=== PATIENT | female | born 1985 | race American Indian/Alaskan Native ===

== ENCOUNTER 2021-10-31 12:51 | Inpatient (IN) | payer OTHER ==
[2021-10-31] MEDS ORDERED: amLODIPine 5 MG TAB PO ONE (13:20)
--- NOTE | 2021-10-31 13:21 | Emergency Department Report ---
ED General Adult HPI - General Chief complaint: High BP Stated complaint: BLOOD PRESSURE HIGH PUI?: No Source: patient, RN notes reviewed Mode of arrival: Ambulatory Limitations: No Limitations - History of Present Illness Initial comments: This patient is a pleasant 36-year-old female. She reports that she is not , and reports that she has not delivered her given in the past 6 weeks. Her primary care doctor is with [facility]. She has not seen a primary care doctor or had a routine checkup in a few years. She presents to the ER today with a complaint of painless hematuria, and painless hypertension and elevated blood pressure. The patient reports that she went to an outpatient urgent care center to be evaluated for hematuria which is painless, and was found to have high blood pressure, and thus referred to the emergency room. Patient denies recreational drug use. She denies physical pain. She denies dysuria. She denies painful muscular compartments. She denies significant family history that she is aware of. -: unknown Improves with: none Worsens with: none Associated Symptoms: denies other symptoms - Related Data Allergies Allergy/AdvReac Type Severity Reaction Status Date / Time No Known Allergies Allergy Verified 10/31/21 12:59 ED Review of Systems ROS: Stated complaint: BLOOD PRESSURE HIGH Other details as noted in HPI Comment: All other systems reviewed and negative Genitourinary: hematuria ED Physical Exam - General Limitations: No Limitations General appearance: alert, anxious, obese - Head Head exam: Present: atraumatic, normocephalic - Eye Eye exam: Present: normal appearance, EOMI. Absent: nystagmus - ENT ENT exam: Present: normal exam, normal orophraynx, mucous membranes moist, normal external ear exam - Neck Neck exam: Present: normal inspection, full ROM. Absent: tenderness, meningismus - Respiratory Respiratory exam: Present: normal lung sounds bilaterally. Absent: respiratory distress, wheezes, rales, rhonchi, stridor, decreased breath sounds - Cardiovascular Cardiovascular Exam: Present: regular rate, normal rhythm, normal heart sounds. Absent: bradycardia, tachycardia, irregular rhythm, systolic murmur, diastolic murmur, rubs, gallop - GI/Abdominal GI/Abdominal exam: Present: soft. Absent: distended, tenderness, guarding, rebound, rigid, pulsatile mass - Extremities Exam Extremities exam: Present: normal inspection, full ROM, other (2+ pulses noted in the bilateral upper and lower extremities. There is no palpable cord. negative Homans sign. Muscular compartments are soft. The pelvis is stable.). Absent: pedal edema, calf tenderness - Back Exam Back exam: Present: normal inspection, full ROM. Absent: tenderness, CVA tenderness (R), CVA tenderness (L), paraspinal tenderness, vertebral tenderness - Neurological Exam Neurological exam: Present: alert, oriented X3, normal gait, other (No facial droop. Tongue midline. Extraocular movements intact bilaterally. Facial sensation intact to light touch in V1, V2, V3 distribution bilaterally. 5 and a 5 strength in 4 extremities. Sensation intact to light touch in 4 extremities .). Absent: motor sensory deficit - Psychiatric Psychiatric exam: Present: normal affect, normal mood - Skin Skin exam: Present: warm, dry, intact, normal color. Absent: rash ED Course Vital Signs 10/31/21 10/31/21 10/31/21 13:01 13:28 13:30 Temperature 98 F Pulse Rate 100 H 101 H Respiratory 16 15 Rate Blood Pressure Blood Pressure 244/148 [Left] O2 Sat by Pulse 100 100 100 Oximetry 10/31/21 10/31/21 10/31/21 13:32 13:46 14:00 Temperature 98.2 F Pulse Rate 97 H 85 Respiratory 18 24 13 Rate Blood Pressure 229/149 224/155 Blood Pressure 226/146 [Left] O2 Sat by Pulse 100 99 100 Oximetry 10/31/21 10/31/21 10/31/21 14:16 15:02 15:10 Temperature Pulse Rate 91 H 81 75 Respiratory 24 16 20 Rate Blood Pressure 226/139 224/152 240/132 Blood Pressure [Left] O2 Sat by Pulse 99 100 100 Oximetry 10/31/21 10/31/21 10/31/21 15:18 15:25 15:30 Temperature Pulse Rate 79 87 Respiratory 17 16 Rate Blood Pressure 229/151 224/144 Blood Pressure 226/144 [Left] O2 Sat by Pulse 100 99 Oximetry 10/31/21 10/31/21 10/31/21 15:46 16:00 16:08 Temperature Pulse Rate 86 77 93 H Respiratory 25 H 21 25 H Rate Blood Pressure 215/137 221/145 240/132 Blood Pressure [Left] O2 Sat by Pulse 100 99 99 Oximetry 10/31/21 10/31/21 10/31/21 16:15 16:19 16:33 Temperature Pulse Rate 95 H 100 H 100 H Respiratory 17 17 21 Rate Blood Pressure 204/130 230/141 186/116 Blood Pressure [Left] O2 Sat by Pulse 97 100 98 Oximetry 10/31/21 10/31/21 10/31/21 16:45 16:47 16:49 Temperature Pulse Rate 110 H 103 H 105 H Respiratory 23 23 23 Rate Blood Pressure 175/109 175/109 175/109 Blood Pressure [Left] O2 Sat by Pulse 100 99 99 Oximetry 10/31/21 10/31/21 10/31/21 16:51 16:53 16:55 Temperature Pulse Rate 104 H 104 H 103 H Respiratory 20 19 19 Rate Blood Pressure 175/109 175/109 175/105 Blood Pressure [Left] O2 Sat by Pulse 99 99 100 Oximetry 10/31/21 10/31/21 10/31/21 16:57 16:59 17:01 Temperature Pulse Rate 96 H 99 H 96 H Respiratory 19 17 17 Rate Blood Pressure 175/105 175/105 175/105 Blood Pressure [Left] O2 Sat by Pulse 98 99 99 Oximetry 10/31/21 10/31/21 10/31/21 17:02 17:03 17:05 Temperature Pulse Rate 97 H 94 H 93 H Respiratory 21 24 16 Rate Blood Pressure 171/103 171/103 171/103 Blood Pressure [Left] O2 Sat by Pulse 98 99 99 Oximetry 10/31/21 10/31/21 10/31/21 17:07 17:09 17:10 Temperature Pulse Rate 99 H 97 H 100 H Respiratory 19 15 20 Rate Blood Pressure 171/103 168/111 168/111 Blood Pressure [Left] O2 Sat by Pulse 99 99 99 Oximetry ED Medical Decision Making - Lab Data Result diagrams: 10/31/21 13:36 10/31/21 13:36 Vital Signs 10/31/21 10/31/21 10/31/21 13:01 13:28 13:30 Temperature 98 F Pulse Rate 100 H 101 H Respiratory 16 15 Rate Blood Pressure Blood Pressure 244/148 [Left] O2 Sat by Pulse 100 100 100 Oximetry 10/31/21 10/31/21 10/31/21 13:32 13:46 14:00 Temperature 98.2 F Pulse Rate 97 H 85 Respiratory 18 24 13 Rate Blood Pressure 229/149 224/155 Blood Pressure 226/146 [Left] O2 Sat by Pulse 100 99 100 Oximetry 10/31/21 10/31/21 10/31/21 14:16 15:02 15:10 Temperature Pulse Rate 91 H 81 75 Respiratory 24 16 20 Rate Blood Pressure 226/139 224/152 240/132 Blood Pressure [Left] O2 Sat by Pulse 99 100 100 Oximetry 10/31/21 10/31/21 10/31/21 15:18 15:25 15:30 Temperature Pulse Rate 79 87 Respiratory 17 16 Rate Blood Pressure 229/151 224/144 Blood Pressure 226/144 [Left] O2 Sat by Pulse 100 99 Oximetry 10/31/21 10/31/21 10/31/21 15:46 16:00 16:08 Temperature Pulse Rate 86 77 93 H Respiratory 25 H 21 25 H Rate Blood Pressure 215/137 221/145 240/132 Blood Pressure [Left] O2 Sat by Pulse 100 99 99 Oximetry 10/31/21 10/31/21 10/31/21 16:15 16:19 16:33 Temperature Pulse Rate 95 H 100 H 100 H Respiratory 17 17 21 Rate Blood Pressure 204/130 230/141 186/116 Blood Pressure [Left] O2 Sat by Pulse 97 100 98 Oximetry 10/31/21 10/31/21 10/31/21 16:45 16:47 16:49 Temperature Pulse Rate 110 H 103 H 105 H Respiratory 23 23 23 Rate Blood Pressure 175/109 175/109 175/109 Blood Pressure [Left] O2 Sat by Pulse 100 99 99 Oximetry 10/31/21 10/31/21 10/31/21 16:51 16:53 16:55 Temperature Pulse Rate 104 H 104 H 103 H Respiratory 20 19 19 Rate Blood Pressure 175/109 175/109 175/105 Blood Pressure [Left] O2 Sat by Pulse 99 99 100 Oximetry 10/31/21 10/31/21 10/31/21 16:57 16:59 17:01 Temperature Pulse Rate 96 H 99 H 96 H Respiratory 19 17 17 Rate Blood Pressure 175/105 175/105 175/105 Blood Pressure [Left] O2 Sat by Pulse 98 99 99 Oximetry 10/31/21 10/31/21 10/31/21 17:02 17:03 17:05 Temperature Pulse Rate 97 H 94 H 93 H Respiratory 21 24 16 Rate Blood Pressure 171/103 171/103 171/103 Blood Pressure [Left] O2 Sat by Pulse 98 99 99 Oximetry 10/31/21 10/31/21 10/31/21 17:07 17:09 17:10 Temperature Pulse Rate 99 H 97 H 100 H Respiratory 19 15 20 Rate Blood Pressure 171/103 168/111 168/111 Blood Pressure [Left] O2 Sat by Pulse 99 99 99 Oximetry Lab Results 10/31/21 10/31/21 10/31/21 Range/Units 13:36 13:36 13:36 WBC 11.8 H (4.5-11.0) K/mm3 RBC 4.56 (3.65-5.03) M/mm3 Hgb 12.6 (10.1-14.3) gm/dl Hct 39.9 (30.3-42.9) % MCV 88 (79-97) fl MCH 28 (28-32) pg MCHC 32 (30-34) % RDW 15.2 (13.2-15.2) % Plt Count 269 (140-440) K/mm3 Sodium 138 (137-145) mmol/L Potassium 4.1 (3.6-5.0) mmol/L Chloride 102.8 (98-107) mmol/L Carbon Dioxide 21 L (22-30) mmol/L Anion Gap 18 mmol/L BUN 17 (7-17) mg/dL Creatinine 2.2 H (0.6-1.2) mg/dL Estimated GFR 31 ml/min BUN/Creatinine Ratio 8 % Glucose 94 (65-100) mg/dL Calcium 9.7 (8.4-10.2) mg/dL Magnesium 1.90 (1.7-2.3) mg/dL Total Bilirubin 0.40 (0.1-1.2) mg/dL AST 14 (5-40) units/L ALT < 5 L (7-56) units/L Alkaline Phosphatase 54 (35-129) units/L Total Creatine Kinase 103 (30-135) units/L Total Protein 7.6 (6.3-8.2) g/dL Albumin 4.0 (3.9-5) g/dL Albumin/Globulin Ratio 1.1 % HCG, Quant < 2 (0-4) mIU/mL Urine Color (Yellow) Urine Turbidity (Clear) Urine pH (5.0-7.0) Ur Specific [place] (1.003-1.030) Urine Protein (Negative) mg/dL Urine Glucose (UA) (Negative) mg/dL Urine Ketones (Negative) mg/dL Urine Blood (Negative) Urine Nitrite (Negative) Urine Bilirubin (Negative) Urine Urobilinogen (<2.0) mg/dL Ur Leukocyte Esterase (Negative) Urine WBC (Auto) (0.0-6.0) /HPF Urine RBC (Auto) (0.0-6.0) /HPF U Epithel Cells (Auto) (0-13.0) /HPF Urine Bacteria (Auto) (Negative) /HPF Urine Creatinine (0.1-20.0) mg/dL Urine Sodium mmol/L 10/31/21 10/31/21 Range/Units 14:48 14:48 WBC (4.5-11.0) K/mm3 RBC (3.65-5.03) M/mm3 Hgb (10.1-14.3) gm/dl Hct (30.3-42.9) % MCV (79-97) fl MCH (28-32) pg MCHC (30-34) % RDW (13.2-15.2) % Plt Count (140-440) K/mm3 Sodium (137-145) mmol/L Potassium (3.6-5.0) mmol/L Chloride (98-107) mmol/L Carbon Dioxide (22-30) mmol/L Anion Gap mmol/L BUN (7-17) mg/dL Creatinine (0.6-1.2) mg/dL Estimated GFR ml/min BUN/Creatinine Ratio % Glucose (65-100) mg/dL Calcium (8.4-10.2) mg/dL Magnesium (1.7-2.3) mg/dL Total Bilirubin (0.1-1.2) mg/dL AST (5-40) units/L ALT (7-56) units/L Alkaline Phosphatase (35-129) units/L Total Creatine Kinase (30-135) units/L Total Protein (6.3-8.2) g/dL Albumin (3.9-5) g/dL Albumin/Globulin Ratio % HCG, Quant (0-4) mIU/mL Urine Color Red (Yellow) Urine Turbidity Clear (Clear) Urine pH 7.0 (5.0-7.0) Ur Specific [place] 1.010 (1.003-1.030) Urine Protein 100 mg/dl (Negative) mg/dL Urine Glucose (UA) Neg (Negative) mg/dL Urine Ketones Neg (Negative) mg/dL Urine Blood Lg (Negative) Urine Nitrite Neg (Negative) Urine Bilirubin Neg (Negative) Urine Urobilinogen < 2.0 (<2.0) mg/dL Ur Leukocyte Esterase Sm (Negative) Urine WBC (Auto) 30.0 H (0.0-6.0) /HPF Urine RBC (Auto) > 182.0 (0.0-6.0) /HPF U Epithel Cells (Auto) 11.0 (0-13.0) /HPF Urine Bacteria (Auto) 1+ (Negative) /HPF Urine Creatinine 128.6 H (0.1-20.0) mg/dL Urine Sodium 84 mmol/L - EKG Data -: EKG Interpreted by Id EKG shows normal: sinus rhythm - EKG Data 10/31/21 17:42 The EKG is interpreted at 15: 19 Sinus rhythm, 81 bpm. Left axis deviation, left anterior fascicular block, LVH, motion artifact. Denies chest pain. Abnormal EKG. Not a STEMI. - Medical Decision Making Differential diagnosis, including but not limited to: Hypertensive urgency, hypertensive emergency, hypertensive nephropathy Assessment and plan: 36-year-old female, who is afebrile, with reassuring vital signs with exception of hypertension, who is in no acute distress, but found to have renal insufficiency and urine sediment. Suspect that patient has chronic undiagnosed hypertension, with probable renal involvement, and may also have potential renal induced hypertension. She is given Norvasc, followed by labetalol. Given [id number] blood pressure, urinary sedimentation, renal insufficiency, we are concerned that the patient may have hypertensive seth rgency. She is started on Cardene drip. Multiple phone calls made to [facility], with [place] coordinating physician, Dr. Kraft We discussed the patient's history, physical, laboratory studies and clinical impression. [facility] authorizes this patient to be admitted here as she has a hypertensive emergency which required initiation of a Cardene drip. Patient is agreeable to this plan of care. IV fluids ordered. Hospital physician, Dr. Collins, to admit patient to the medical service. Discussed the patient's history, physical, laboratory studies and clinical impression with critical care physician on-call, Dr. Mancera, who will follow in consultation. Critical Care Time: Yes Critical care time in (mins) excluding proc time.: 74 Critical care attestation.: If time is entered above; I have spent that time in minutes in the direct care of this critically ill patient, excluding procedure time. ED Disposition Clinical Impression: Hypertensive emergency, Renal insufficiency Disposition: ADMITTED INPATIENT Is pt being admited?: Yes Does the pt Need Aspirin: No Condition: Critical
[2021-10-31 13:59] LABS: Hematocrit 39.9 % (30.3-42.9); Hemoglobin 12.6 gm/dl (10.1-14.3); Mean Corpuscular HGB Conc 32 % (30-34); Mean Corpuscular Volume 88 fl (79-97); Platelet Count 269 K/mm3 (140-440); Red Blood Count 4.56 M/mm3 (3.65-5.03); Red Cell Distribution Width 15.2 % (13.2-15.2)
[2021-10-31 14:18] LABS: BUN/Creatinine Ratio 8; Blood Urea Nitrogen 17 mg/dL (7-17); Calcium 9.7 mg/dL (8.4-10.2); Hemolysis Index 6
[2021-10-31 14:19] LABS: Alanine Aminotransferase < 5 units/L (7-56)
[2021-10-31] MEDS ORDERED: LACTATED RINGERS 1,000 ML IV ONE (14:37)
[2021-10-31 15:32] LABS: Bacteria,Urine 1+ /HPF (Negative); Bilirubin,Urine NEG (Negative); Blood,Urine LG (Negative); Color,Urine Red (Yellow); Urobilinogen,Urine < 2.0 mg/dL (<2.0)
[2021-10-31] MEDS ORDERED: niCARdipine DRIP 40 MG/200 ML BAG IV ONE (15:32)
[2021-10-31] MEDS ORDERED: HYDROmorphone 1 MG/1 ML INJ IV PRN (15:35)
[2021-10-31] MEDS ORDERED: ALBUTEROL 2.5 MG/3 ML NEBU IH PRN (15:35)
[2021-10-31] MEDS ORDERED: ACETAMINOPHEN 325 MG TAB PO PRN (15:35)
[2021-10-31] MEDS ORDERED: oxyCODONE /ACETAMINOPHEN 5-325MG TAB PO PRN (15:35)
[2021-10-31] MEDS ORDERED: ONDANSETRON 4 MG/2 ML INJ IV PRN (15:35)
--- NOTE | 2021-10-31 15:35 | History and Physical Report ---
History of Present Illness Chief complaint: I have blood in my urine and the blood pressure is high History of present illness: 36 YO Female with Gestational HTN not currently taking antihypertensive medication presents ED for evaluation. Patient reports "I have blood in my urine and my blood pressure is high". Patient states that she is was seen and evaluated at an outpatient urgent care center for blood in her urine which she has experienced over the past 1 day. The patient was found to have elevated blood pressure. Patient was referred to [facility] ED for further care and evaluation. Patient transported to [facility] via private vehicle for further care and evaluation of the aforementioned symptoms. The patient was seen and evaluated in the emergency department. All lab and imaging studies reviewed. Patient found to have hypertensive emergency with a blood pressure of 244/148 mmHg. Patient found to have acute kidney injury, SIRS, as well as hematuria. Nephrology team consulted in ED. Patient initiated on Cardene drip and admitted to ICU. Critical care team consulted. Patient denies fever, chills, chest pain, palpitation, productive cough, skin rash or recent contact, or known exposure to COVID-19. No prior admission for review. No medication listed at time of admission for reconciliation. Advanced care planning conducted in ED. Past History Past Medical History: other (Gestational hypertension, see HPI) Past Surgical History: No surgical history Social history: single, lives with family. denies: smoking, alcohol abuse, prescription drug abuse Family history: hypertension Medications and Allergies Allergies Allergy/AdvReac Type Severity Reaction Status Date / Time No Known Allergies Allergy Verified 10/31/21 12:59 Active Meds: Active Medications Lactated Ringer's (Lactated Ringers) 1,000 mls @ 999 mls/hr IV BOLUS ONE Stop: 10/31/21 15:37 Last Admin: 10/31/21 15:01 Dose: 999 mls/hr Nicardipine/Sodium Chloride (Cardene Drip 40 Mg/200 Ml) 40 mg in 200 mls @ 25 mls/hr IV ONCE ONE; Protocol Stop: 10/31/21 23:31 Review of Systems Constitutional: no weight loss, no weight gain, no chills, no sweats Ears, nose, mouth and throat: no ear pain, no tinnitis, no decreased hearing, no nasal congestion Breasts: no change in shape, no swelling, no mass Cardiovascular: no chest pain, no orthopnea, no palpitations, no rapid/irregular heart beat Respiratory: no cough, no cough with sputum, no excessive sputum, no hemoptysis Gastrointestinal: no abdominal pain, no nausea, no vomiting, no diarrhea, no constipation Genitourinary Female: hematuria, no pelvic pain, no flank pain, no dysuria, no urinary frequency Rectal: no pain, no incontinence, no bleeding Musculoskeletal: no neck stiffness, no neck pain, no arm numbness/tingling, no low back pain Integumentary: no rash, no pruritis, no sores, no wounds Neurological: no head injury, no parathesias, no tingling, no seizures Psychiatric: no anxiety, no memory loss, no sleep disturbances, no hypersomnia, no change in appetite, no hallucinations Endocrine: no cold intolerance, no polyphagia, no excessive thirst, no polydipsia, no polyuria Hematologic/Lymphatic: no easy bruising, no easy bleeding Allergic/Immunologic: no wheezing Exam - Constitutional Vitals: Temp Pulse Resp BP Pulse Ox 98.2 F 100 H 18 226/144 100 10/31/21 13:32 10/31/21 13:01 10/31/21 13:32 10/31/21 15:25 10/31/21 13:32 General appearance: Present: mild distress, obese - EENT Eyes: Present: PERRL ENT: hearing intact, clear oral mucosa - Neck Neck: Present: supple, normal ROM - Respiratory Respiratory effort: normal Respiratory: bilateral: CTA - Cardiovascular Heart Sounds: Present: S1 & S2. Absent: rub, click - Extremities Extremities: pulses symmetrical, No edema Peripheral Pulses: within normal limits - Abdominal General gastrointestinal: Present: soft, non-tender, non-distended, normal bowel sounds Female genitourinary: Present: normal - Integumentary Integumentary: Present: clear, warm, dry - Musculoskeletal Musculoskeletal: gait normal, strength equal bilaterally - Psychiatric Psychiatric: appropriate mood/affect, intact judgment & insight - Neurologic Neurologic: CNII-XII intact, moves all extremities Results - Labs CBC & Chem 7: 10/31/21 13:36 10/31/21 13:36 Labs: Abnormal lab results 10/31/21 10/31/21 Range/Units 13:36 13:36 WBC 11.8 H (4.5-11.0) K/mm3 Carbon Dioxide 21 L (22-30) mmol/L Creatinine 2.2 H (0.6-1.2) mg/dL ALT < 5 L (7-56) units/L Assessment and Plan - Patient Problems (1) Hypertensive emergency Current Visit: Yes Status: Acute Plan to address problem: Admit to ICU: Cardene drip, monitor blood pressure every shift, supportive care, The high probability of a clinically significant, sudden or life threatening deterioration of the [renal, endocrine, cardiovascular] system(s) required my full and direct attention, intervention and personal management. The aggregate critical care time was [65] minutes. This time is in addition to time spent per forming reported procedures but includes the following: [x] Data Review and interpretation [x] Patient assessment and monitoring of vital signs [x] Documentation [x] Medication orders and management (2) Acute kidney injury (IRLANDA) with acute tubular necrosis (ATN) Current Visit: Yes Status: Acute Plan to address problem: Nephrology team consulted in ED. Renal ultrasound, BONNIE, C3, C4, ANCA, protein creatinine ratio, monitor urine output every shift, monitor fluid balance. (3) SIRS (systemic inflammatory response syndrome) Current Visit: Yes Status: Acute Plan to address problem: CBC, repeat CBC in a.m. No signs of infection. Continue to monitor. (4) DVT prophylaxis Current Visit: Yes Status: Acute Plan to address problem: SCD to bilateral lower extremities while in bed (5) Advance care planning Current Visit: Yes Status: Acute Plan to address problem: Diseases conducted, care plan discussed, diagnoses discussed, prognosis discussed, patient is full code. Patient knowledges understanding and agreement with care plan, +30 minutes.
--- NOTE | 2021-10-31 15:35 | Progress Note ---
Hospitalist Physical - Constitutional Vitals: Temp Pulse Resp BP Pulse Ox 98.2 F 100 H 18 226/144 100 10/31/21 13:32 10/31/21 13:01 10/31/21 13:32 10/31/21 15:25 10/31/21 13:32 Results - Labs CBC & Chem 7: 10/31/21 13:36 10/31/21 13:36 Labs: Laboratory Last Values WBC 11.8 K/mm3 (4.5-11.0) H 10/31/21 13:36 RBC 4.56 M/mm3 (3.65-5.03) 10/31/21 13:36 Hgb 12.6 gm/dl (10.1-14.3) 10/31/21 13:36 Hct 39.9 % (30.3-42.9) 10/31/21 13:36 MCV 88 fl (79-97) 10/31/21 13:36 MCH 28 pg (28-32) 10/31/21 13:36 MCHC 32 % (30-34) 10/31/21 13:36 RDW 15.2 % (13.2-15.2) 10/31/21 13:36 Plt Count 269 K/mm3 (140-440) 10/31/21 13:36 Sodium 138 mmol/L (137-145) 10/31/21 13:36 Potassium 4.1 mmol/L (3.6-5.0) 10/31/21 13:36 Chloride 102.8 mmol/L (98-107) 10/31/21 13:36 Carbon Dioxide 21 mmol/L (22-30) L 10/31/21 13:36 Anion Gap 18 mmol/L 10/31/21 13:36 BUN 17 mg/dL (7-17) 10/31/21 13:36 Creatinine 2.2 mg/dL (0.6-1.2) H 10/31/21 13:36 Estimated GFR 31 ml/min 10/31/21 13:36 BUN/Creatinine Ratio 8 % 10/31/21 13:36 Glucose 94 mg/dL (65-100) 10/31/21 13:36 Calcium 9.7 mg/dL (8.4-10.2) 10/31/21 13:36 Magnesium 1.90 mg/dL (1.7-2.3) 10/31/21 13:36 Total Bilirubin 0.40 mg/dL (0.1-1.2) 10/31/21 13:36 AST 14 units/L (5-40) 10/31/21 13:36 ALT < 5 units/L (7-56) L 10/31/21 13:36 Alkaline Phosphatase 54 units/L (35-129) 10/31/21 13:36 Total Creatine Kinase 103 units/L (30-135) 10/31/21 13:36 Total Protein 7.6 g/dL (6.3-8.2) 10/31/21 13:36 Albumin 4.0 g/dL (3.9-5) 10/31/21 13:36 Albumin/Globulin Ratio 1.1 % 10/31/21 13:36 HCG, Quant < 2 mIU/mL (0-4) 10/31/21 13:36 Urine Bilirubin Neg (Negative) 10/31/21 14:48 U Epithel Cells (Auto) 11.0 /HPF (0-13.0) 10/31/21 14:48 Active Medications - Current Medications Current Medications: Generic Name Dose Route Start Last Admin Trade Name Freq PRN Reason Stop Dose Admin Lactated Ringer's 1,000 mls @ 999 mls/hr 10/31/21 14:37 10/31/21 15:01 Lactated Ringers IV 10/31/21 15:37 999 mls/hr BOLUS ONE Administration Nicardipine/Sodium Chloride 40 mg in 200 mls @ 25 mls/hr 10/31/21 15:32 Cardene Drip 40 Mg/200 Ml IV 10/31/21 23:31 ONCE ONE Protocol 5 MG/HR
[2021-10-31 15:36] LABS: RBC,Urine > 182.0 /HPF (0.0-6.0)
[2021-10-31 15:48] LABS: Creatinine,Urine 128.6 mg/dL (0.1-20.0)
--- NOTE | 2021-10-31 16:41 | Consultation ---
History of Present Illness Consult date: 10/31/21 Requesting physician: HU HANKINS History of present illness: 36 YO Female with Gestational HTN not currently taking antihypertensive medicati on presents ED for evaluation. Patient reports "I have blood in my urine and my blood pressure is high". Patient states that she is was seen and evaluated at an outpatient urgent care center for blood in her urine which she has experienced over the past 1 day. The patient was found to have elevated blood pressure. Patient was referred to [facility] ED for further care and evaluation. Patient transported to [facility] via private vehicle for further care and evaluation of the aforementioned symptoms. The patient was seen and evaluated in the emergency department. All lab and imaging studies reviewed. Patient found to have hypertensive emergency with a blood pressure of 244/148 mmHg. P Patient initiated on Cardene drip and admitted to ICU. Critical care team consulted. Thank you. Patient seen and examined. Vitals, labs, medications, chart reviewed She states she had hypertension in . Urinalysis reviewed- active sediment.She does not know if there is a family history of autoimmune or collagen vascular disorder. She is adopted. Patient denies fever, chills, chest pain, palpitation, productive cough, skin rash or recent contact, or known exposure to COVID-19. Medications and Allergies Allergies Allergy/AdvReac Type Severity Reaction Status Date / Time No Known Allergies Allergy Verified 10/31/21 12:59 Home Medications Medication Instructions Recorded Confirmed Last Taken Type No Known Home Medications [No 10/31/21 10/31/21 Unknown History Reported Home Medications] Active Meds: Active Medications Acetaminophen (Acetaminophen 325 Mg Tab) 650 mg PO Q4H PRN PRN Reason: Pain MILD(1-3)/Fever >100.5/HUBBARD Albuterol (Albuterol 2.5 Mg/3 Ml Nebu) 2.5 mg IH Q4H PRN PRN Reason: Shortness Of Breath Hydromorphone HCl (Hydromorphone 1 Mg/1 Ml Inj) 0.5 mg IV Q23H PRN PRN Reason: Pain , Severe (7-10) Nicardipine/Sodium Chloride (Cardene Drip 40 Mg/200 Ml) 40 mg in 200 mls @ 25 mls/hr IV ONCE ONE; Protocol Stop: 10/31/21 23:31 Last Admin: 10/31/21 15:55 Dose: 5 mg/hr, 25 mls/hr Ondansetron HCl (Ondansetron 4 Mg/2 Ml Inj) 4 mg IV Q8H PRN PRN Reason: Nausea And Vomiting Oxycodone/Acetaminophen (Oxycodone /Acetaminophen 5-325mg Tab) 1 tab PO Q16H PRN PRN Reason: Pain, Moderate (4-6) Sodium Chloride (Sodium Chloride 0.9% 10 Ml Flush Syringe) 10 ml IV BID VITOR Sodium Chloride (Sodium Chloride 0.9% 10 Ml Flush Syringe) 10 ml IV PRN PRN PRN Reason: LINE FLUSH Review of Systems Constitutional: no weight loss, no weight gain, no fever, no chills, no sweats, no night sweats Cardiovascular: no chest pain, no orthopnea, no palpitations, no rapid/irregular heart beat, no edema, no syncope, no lightheadedness, no shortness of breath Respiratory: no cough, no cough with sputum, no hemoptysis, no shortness of breath, no dyspnea on exertion Gastrointestinal: no abdominal pain, no nausea, no vomiting, no diarrhea, no constipation Genitourinary Female: hematuria, no pelvic pain, no dysuria, no urinary frequency, no urgency Musculoskeletal: no neck stiffness, no neck pain, no shooting arm pain, no arm numbness/tingling, no low back pain, no shooting leg pain Integumentary: no rash, no redness, no sores, no blisters Neurological: no transient paralysis, no paralysis, no parathesias, no tingling, no seizures, no syncope Psychiatric: no anxiety, no memory loss, no change in sleep habits, no sleep disturbances, no change in appetite, no change in libido Endocrine: no polyphagia, no polydipsia, no polyuria, no nocturia, no flushing, no weight change Hematologic/Lymphatic: no easy bruising, no easy bleeding Physical Examination Vital signs: Vital Signs Temp Pulse Resp BP Pulse Ox 98 F 100 H 16 244/148 100 10/31/21 13:01 10/31/21 13:01 10/31/21 13:01 10/31/21 13:01 10/31/21 13:01 General appearance: no acute distress, alert Eyes: non-icteric ENT: oropharynx moist Neck: supple, no lymphadenopathy, no JVD Effort: normal Ascultation: Bilateral: clear Cardiovascular: regular rate and rhythm, other (S1,S2) Gastrointestinal: normoactive bowel sounds, soft, non-tender Integumentary: normal Extremities: no cyanosis, no edema, pink and warm, pulses normal normal mental status, non-focal exam, pupils equal and round, CN II-XII normal, motor strength normal and mood appropriate, affect normal Results - Laboratory Findings CBC and BMP: 10/31/21 13:36 10/31/21 13:36 Abnormal lab findings: Abnormal Labs 10/31/21 10/31/21 10/31/21 13:36 13:36 14:48 WBC 11.8 H Carbon Dioxide 21 L Creatinine 2.2 H ALT < 5 L Urine WBC (Auto) 30.0 H Urine Creatinine 10/31/21 14:48 WBC Carbon Dioxide Creatinine ALT Urine WBC (Auto) Urine Creatinine 128.6 H Assessment and Plan (1) Hypertensive emergency Current Visit: Yes Status: Acute Plan to address problem: Admit to ICU: Cardene infusion, titrate to keep SBP <150 Oral antihypertensives Low salt diet The high probability of a clinically significant, sudden or life threatening deterioration of the [renal, endocrine, cardiovascular] system(s) required my full and direct attention, intervention and personal management. The aggregate critical care time was [33] minutes. This time is in addition to time spent performing reported procedures but includes the following: [x] Data Review and interpretation [x] Patient assessment and monitoring of vital signs [x] Documentation [x] Medication orders and management (2) Acute kidney injury (IRLANDA) with acute tubular necrosis (ATN) Current Visit: Yes Status: Acute Plan to address problem: Renal ultrasound, BONNIE, C3, C4, ANCA, protein creatinine ratio, monitor urine output every shift, monitor fluid balance. Avoid nephrotoxins May need renal biopsy Renal consult Discussed with ED physician re care plan Discussed with the patient, updated her and answered all her questions Ambulate, SCDs while in bed for VTE prophylaxis CODE STATUS: Full
--- NOTE | 2021-10-31 17:55 | Ultrasound Report ---
ULTRASOUND RENAL INDICATION / CLINICAL INFORMATION: librado/hypertension. COMPARISON: None available. FINDINGS: RIGHT KIDNEY: Length = 16.7 cm. - Echogenicity: Severely echogenic. - Parenchymal Thickness: Normal. - Hydronephrosis: None. - Cyst / Mass: There are innumerable cysts of varying sizes measuring up to 5 cm. - Stones: None seen. LEFT KIDNEY: Length = 18.1 cm. - Echogenicity: Severely echogenic. - Parenchymal Thickness: Normal. - Hydronephrosis: None. - Cyst / Mass: There are innumerable cysts of varying sizes measuring up to 5 cm. - Stones: None seen. URINARY BLADDER: No significant abnormality. FREE FLUID: None. ADDITIONAL FINDINGS: None. IMPRESSION: 1. Kidneys are enlarged with innumerable cysts bilaterally characteristic of polycystic kidney diseas e. Renal parenchyma is severely echogenic. Signer Name: Joseph Madera MD Signed: 10/31/2021 5:50 PM Workstation Name: [email or web address]
[2021-10-31 17:58] LABS: Amphetamine Screen,Urine PRESUMPTIVE NEGATIVE; Benzodiazepines Screen,Urine PRESUMPTIVE NEGATIVE; Cannabinoid Screen,Urine PRESUMPTIVE NEGATIVE; Cocaine Screen,Urine PRESUMPTIVE NEGATIVE; Creatinine,Urine 54.6 mg/dL (0.1-20.0); Methadone Screen,Urine PRESUMPTIVE NEGATIVE; Opiate Screen,Urine PRESUMPTIVE NEGATIVE; Protein/Creatinine Ratio,Urine 0.49
[2021-11-01] MEDS: hydrALAZINE 20 MG/1 ML INJ IV PRN ×3 (08:11→20:36)
--- NOTE | 2021-11-01 08:57 | Progress Note ---
Subjective Date of service: 11/01/21 Objective Vital Signs - 12hr 10/31/21 10/31/21 10/31/21 21:00 21:16 22:00 Temperature Pulse Rate 108 H 92 H Respiratory 23 19 Rate Blood Pressure 112/56 137/86 O2 Sat by Pulse 100 96 96 Oximetry 10/31/21 11/01/21 11/01/21 23:00 00:00 01:00 Temperature 98.6 F Pulse Rate 89 86 82 Respiratory 19 19 19 Rate Blood Pressure 143/91 139/93 152/103 O2 Sat by Pulse 97 97 97 Oximetry 11/01/21 11/01/21 11/01/21 02:00 03:00 03:50 Temperature 97.9 F Pulse Rate 81 74 Respiratory 18 20 Rate Blood Pressure 149/102 136/87 O2 Sat by Pulse 97 97 Oximetry 11/01/21 11/01/21 11/01/21 04:00 05:00 06:00 Temperature Pulse Rate 83 78 78 Respiratory 19 18 13 Rate Blood Pressure 137/89 148/91 154/100 O2 Sat by Pulse 99 97 99 Oximetry 11/01/21 11/01/21 07:01 08:00 Temperature 98.4 F Pulse Rate 112 H 93 H Respiratory 16 12 Rate Blood Pressure 179/127 186/121 O2 Sat by Pulse 96 99 Oximetry Constitutional: no acute distress, alert Eyes: non-icteric ENT: oropharynx moist Neck: supple, no lymphadenopathy, no JVD Effort: normal Ascultation: Bilateral: clear Cardiovascular: regular rate and rhythm, other (S1,S2) Gastrointestinal: normoactive bowel sounds, soft, non-tender Integumentary: normal Extremities: no cyanosis, no edema, pink and warm, pulses normal Neurologic: normal mental status, non-focal exam, pupils equal and round, CN II- XII normal, motor strength normal and Psychiatric: mood appropriate, affect normal CBC and BMP: 10/31/21 13:36 10/31/21 13:36 Abnormal lab findings: Abnormal Labs 10/31/21 10/31/21 10/31/21 13:36 13:36 14:48 WBC 11.8 H Carbon Dioxide 21 L Creatinine 2.2 H ALT < 5 L Urine WBC (Auto) 30.0 H Urine Creatinine Urine Total Protein 10/31/21 10/31/21 14:48 16:56 WBC Carbon Dioxide Creatinine ALT Urine WBC (Auto) Urine Creatinine 128.6 H 54.6 H Urine Total Protein 27 H
--- NOTE | 2021-11-01 09:46 | Consultation ---
History of Present Illness - Reason for Consult Consult date: 11/01/21 acute renal failure - History of Present Illness The patient is a 36 YO female with history of Obesity and HTN currently not taking any antihypertensive medication who presented to [facility] with c/o blood in my urine and high bood pressure. Patient states that she was seen and evaluated at an outpatient urgent care center for blood in her urine which she has experienced over the past 1 day. The patient was found to have elevated blood pressure. Patient was referred to ED for further care and evaluation. Denies prior kidney problem. Hasn't seen a physician until recently. In the ED initial blood pressure was 244/148 mmHg. Labs notable for Creat 2.2. Nephrology was consulted for further evaluation of IRLANDA. Past History Past Medical History: hypertension Past Surgical History: No surgical history Social history: single, lives with family. denies: smoking, alcohol abuse, prescription drug abuse Family history: hypertension Medications and Allergies Allergies Allergy/AdvReac Type Severity Reaction Status Date / Time No Known Allergies Allergy Verified 10/31/21 12:59 Home Medications Medication Instructions Recorded Confirmed Last Taken Type amLODIPine 10 mg PO QDAY #30 tablet 11/02/21 Unknown Rx atenoloL [Tenormin] 50 mg PO QDAY #30 tablet 11/02/21 Unknown Rx hydrALAZINE [Apresoline TAB] 50 mg PO Q12HR #60 11/02/21 Unknown Rx Active Meds: Active Medications Acetaminophen (Acetaminophen 325 Mg Tab) 650 mg PO Q4H PRN PRN Reason: Pain MILD(1-3)/Fever >100.5/HUBBARD Albuterol (Albuterol 2.5 Mg/3 Ml Nebu) 2.5 mg IH Q4H PRN PRN Reason: Shortness Of Breath Amlodipine Besylate (Amlodipine 10 Mg Tab) 10 mg PO QDAY VITOR Atenolol (Atenolol 25 Mg Tab) 25 mg PO QDAY VITOR Famotidine (Famotidine 20 Mg Tab) 20 mg PO QDAY VITOR Hydralazine HCl (Hydralazine 20 Mg/1 Ml Inj) 10 mg IV Q4HR PRN PRN Reason: Hypertension Hydromorphone HCl (Hydromorphone 1 Mg/1 Ml Inj) 0.5 mg IV Q23H PRN PRN Reason: Pain , Severe (7-10) Ondansetron HCl (Ondansetron 4 Mg/2 Ml Inj) 4 mg IV Q8H PRN PRN Reason: Nausea And Vomiting Oxycodone/Acetaminophen (Oxycodone /Acetaminophen 5-325mg Tab) 1 tab PO Q16H PRN PRN Reason: Pain, Moderate (4-6) Sodium Chloride (Sodium Chloride 0.9% 10 Ml Flush Syringe) 10 ml IV BID VITOR Last Admin: 10/31/21 21:14 Dose: 10 ml Sodium Chloride (Sodium Chloride 0.9% 10 Ml Flush Syringe) 10 ml IV PRN PRN PRN Reason: LINE FLUSH Review of Systems Constitutional: no weight loss, no weight gain, no fever, no chills Ears, nose, mouth and throat: no epistaxis Breasts: deferred Cardiovascular: high blood pressure, no chest pain, no orthopnea, no edema, no syncope, no lightheadedness, no shortness of breath, no dyspnea on exertion Respiratory: no cough, no shortness of breath Gastrointestinal: no abdominal pain, no nausea, no vomiting, no diarrhea Genitourinary Female: hematuria Integumentary: no rash Neurological: no seizures, no syncope, no convulsions, no aphasia, no change in speech, no change in mentation, no confusion Exam - Vital Signs Vital signs: Vital Signs Temp Pulse Resp BP Pulse Ox 98 F 100 H 16 244/148 100 10/31/21 13:01 10/31/21 13:01 10/31/21 13:01 10/31/21 13:01 10/31/21 13:01 Results - Lab Results 11/01/21 12:02 11/02/21 04:09 Most recent lab results Calcium 9.7 mg/dL (8.4-10.2) 10/31/21 13:36 Magnesium 1.90 mg/dL (1.7-2.3) 10/31/21 13:36 Urine Creatinine 54.6 mg/dL (0.1-20.0) H 10/31/21 16:56 Urine Sodium 84 mmol/L 10/31/21 14:48 Urine Total Protein 27 mg/dL (5-11.8) H 10/31/21 16:56 Assessment and Plan 1. CKD / Acute kidney injury: Admitted with Creat of 2.2. Renal US showed PKD with echogenic kidneys. Most likely CKD stage 3b. Monitor renal function. Avoid nephrotoxic agents. Meds dosage based on GFR. 2. FEN: Mild Metabolic acidosis, monitor. Monitor lytes and volume status. 3. Hypertensive emergency: S/p Cardene gtt. BP is improving. Adjust antihypertensive meds. Monitor. 4. PKD: ?ADPKD. Patient is adopted, family history NA. Subjective: Patient was seen and examined at the bedside. Nurse at the bedside. Examination: General appearance: well-developed, appears stated age, no distress HEENT: atraumatic, pupils reacting to light Neck: trachea midline Respiratory: ctab Heart: S1S2, regular, no murmur Abdomen: soft, bowel sounds heard, NT Integumentary: no obvious rash Neurologic: AO, non-focal Ext: no edema
[2021-11-01] MEDS ORDERED: atenoloL 25 MG TAB PO SCH (10:00)
[2021-11-01] MEDS ORDERED: LISINOPRIL 5 MG TAB PO SCH (10:00)
[2021-11-01] MEDS: FAMOTIDINE 20 MG TAB PO SCH (10:15)
[2021-11-01] MEDS: amLODIPine 10 MG TAB PO SCH (10:15)
--- NOTE | 2021-11-01 10:35 | Progress Note ---
<YADY EDMOND - Last Filed: 11/01/21 18:47> Assessment and Plan Assessment and plan: This is a 36-year-old female with past medical history of gestational HTN admitted for hypertensive emergency and IRLANDA Hospital Course to Date: 11/01: Off cardene gtt overnight, PO antihypertensive agents added and PRN labetalol and hydralazine for SBP greater than 160. Renal US noted suggesting polycystic kidney disease, Nephrology consulted. Finding discussed with patient at the bedside, education provided on disease and renoprotective lifestyle measures. Patient voiced understanding of the info provided. All questions and concerns were voiced at this time. Patient is stable for transfer to the [facility] heart floor Assessment and Plan #Hypertensive Emergency - Presented with a SBP in the 200s - S/p Cardene gtt, off overnight - BP improved, however still high this am - PO Antihypertensive agents; Norvasc and atenolol added - Continue blood pressure monitor per protocol - PRN IV Hydralazine and Labetalol for SBP above 160 - CCM and Nephrology is also following #Acute Kidney Injury (IRLANDA) with Acute Tubular Necrosis (ATN) #Polycystic Kidney Disease - Presented SCr. at 2.2, baseline is unknown - with c/o hematuria X1day - 10/31 US noted suggesting polycystic kidney disease - BONNIE, C3, C4, ANCA pending - Nephrology consulted, appreciated recommendation - Strict intake and output - Avoid nephrotoxic medications; Renally dose medications - Monitor and replace electrolytes as needed - Education provided to patient about disease and renoprotective lifestyle measures. #GI/DVT prophylaxis - PPI- Pepcid - SCD to bilateral lower extremities while in bed The high probability of a clinically significant, sudden or life threatening deterioration of the [multiple] system(s) required my full and direct attention, intervention and personal management. The aggregate critical care time was [60] minutes. This time is in addition to time spent performing reported procedures but includes the following: [x] Data Review and interpretation [x] Patient assessment and monitoring of vital signs [x] Documentation [x] Medication orders and management Disposition Plan: ICU Total Time Spent with Patient (Minutes): 60 History Interval history: Patient seen and examined at the bedside. Full AAO, on RA, denied any pain nor any discomfort at this time. Off cardene gtt overnight. URIEL overnight Hospitalist Physical - Constitutional Vitals: Temp Pulse Resp BP Pulse Ox 98.4 F 97 H 12 174/117 99 11/01/21 08:00 11/01/21 10:15 11/01/21 10:00 11/01/21 10:15 11/01/21 10:00 General appearance: Present: no acute distress, obese - EENT Eyes: Present: PERRL, EOM intact ENT: hearing intact, clear oral mucosa - Neck Neck: Present: normal ROM - Respiratory Respiratory effort: normal Respiratory: bilateral: CTA - Cardiovascular Rhythm: regular Heart Sounds: Present: S1 & S2 - Extremities Extremities: no ischemia, pulses intact, pulses symmetrical Extremity abnormal: edema - Peripheral Assessment Generalized Edema Type: Non-pitting Edema Degree: 1+ Capillary Refill: < 3 seconds Skin Temperature: Warm Peripheral Pulses: within normal limits - Abdominal General gastrointestinal: soft, non-distended, normal bowel sounds - Integumentary Integumentary: Present: clear, warm, dry - Psychiatric Psychiatric: appropriate mood/affect, cooperative - Neurologic Neurologic: CNII-XII intact, moves all extremities - Allied Health Allied health notes reviewed: nursing Results - Labs CBC & Chem 7: 11/01/21 12:02 11/01/21 12:02 Labs: Laboratory Last Values WBC 11.8 K/mm3 (4.5-11.0) H 10/31/21 13:36 RBC 4.56 M/mm3 (3.65-5.03) 10/31/21 13:36 Hgb 12.6 gm/dl (10.1-14.3) 10/31/21 13:36 Hct 39.9 % (30.3-42.9) 10/31/21 13:36 MCV 88 fl (79-97) 10/31/21 13:36 MCH 28 pg (28-32) 10/31/21 13:36 MCHC 32 % (30-34) 10/31/21 13:36 RDW 15.2 % (13.2-15.2) 10/31/21 13:36 Plt Count 269 K/mm3 (140-440) 10/31/21 13:36 Sodium 138 mmol/L (137-145) 10/31/21 13:36 Potassium 4.1 mmol/L (3.6-5.0) 10/31/21 13:36 Chloride 102.8 mmol/L (98-107) 10/31/21 13:36 Carbon Dioxide 21 mmol/L (22-30) L 10/31/21 13:36 Anion Gap 18 mmol/L 10/31/21 13:36 BUN 17 mg/dL (7-17) 10/31/21 13:36 Creatinine 2.2 mg/dL (0.6-1.2) H 10/31/21 13:36 Estimated GFR 31 ml/min 10/31/21 13:36 BUN/Creatinine Ratio 8 % 10/31/21 13:36 Glucose 94 mg/dL (65-100) 10/31/21 13:36 Calcium 9.7 mg/dL (8.4-10.2) 10/31/21 13:36 Magnesium 1.90 mg/dL (1.7-2.3) 10/31/21 13:36 Total Bilirubin 0.40 mg/dL (0.1-1.2) 10/31/21 13:36 AST 14 units/L (5-40) 10/31/21 13:36 ALT < 5 units/L (7-56) L 10/31/21 13:36 Alkaline Phosphatase 54 units/L (35-129) 10/31/21 13:36 Total Creatine Kinase 103 units/L (30-135) 10/31/21 13:36 Total Protein 7.6 g/dL (6.3-8.2) 10/31/21 13:36 Albumin 4.0 g/dL (3.9-5) 10/31/21 13:36 Albumin/Globulin Ratio 1.1 % 10/31/21 13:36 HCG, Quant < 2 mIU/mL (0-4) 10/31/21 13:36 Urine Color Red (Yellow) 10/31/21 14:48 Urine Turbidity Clear (Clear) 10/31/21 14:48 Urine pH 7.0 (5.0-7.0) 10/31/21 14:48 Ur Specific [place] 1.010 (1.003-1.030) 10/31/21 14:48 Urine Protein 100 mg/dl mg/dL (Negative) 10/31/21 14:48 Urine Glucose (UA) Neg mg/dL (Negative) 10/31/21 14:48 Urine Ketones Neg mg/dL (Negative) 10/31/21 14:48 Urine Blood Lg (Negative) 10/31/21 14:48 Urine Nitrite Neg (Negative) 10/31/21 14:48 Urine Bilirubin Neg (Negative) 10/31/21 14:48 Urine Urobilinogen < 2.0 mg/dL (<2.0) 10/31/21 14:48 Ur Leukocyte Esterase Sm (Negative) 10/31/21 14:48 Urine WBC (Auto) 30.0 /HPF (0.0-6.0) H 10/31/21 14:48 Urine RBC (Auto) > 182.0 /HPF (0.0-6.0) 10/31/21 14:48 U Epithel Cells (Auto) 11.0 /HPF (0-13.0) 10/31/21 14:48 Urine Bacteria (Auto) 1+ /HPF (Negative) 10/31/21 14:48 Urine Osmolality 365 Mosm/kg 10/31/21 14:48 Urine Creatinine 54.6 mg/dL (0.1-20.0) H 10/31/21 16:56 Protein/Creatinin Ratio 0.49 10/31/21 16:56 Urine Sodium 84 mmol/L 10/31/21 14:48 Urine Total Protein 27 mg/dL (5-11.8) H 10/31/21 16:56 Urine Opiates Screen Presumptive negative 10/31/21 16:56 Urine Methadone Screen Presumptive negative 10/31/21 16:56 Ur Barbiturates Screen Presumptive negative 10/31/21 16:56 Ur Phencyclidine Scrn Presumptive negative 10/31/21 16:56 Ur Amphetamines Screen Presumptive negative 10/31/21 16:56 U Benzodiazepines Scrn Presumptive negative 10/31/21 16:56 Urine Cocaine Screen Presumptive negative 10/31/21 16:56 U Marijuana (THC) Screen Presumptive negative 10/31/21 16:56 Drugs of Abuse Note Disclamer 10/31/21 16:56 Active Medications - Current Medications Current Medications: Generic Name Dose Route Start Last Admin Trade Name Freq PRN Reason Stop Dose Admin Acetaminophen 650 mg 10/31/21 15:35 Acetaminophen 325 Mg Tab PO Q4H PRN Pain MILD(1-3)/Fever >100.5/HUBBARD Albuterol 2.5 mg 10/31/21 15:35 Albuterol 2.5 Mg/3 Ml Nebu IH Q4H PRN Shortness Of Breath Amlodipine Besylate 10 mg 11/01/21 10:00 11/01/21 10:15 Amlodipine 10 Mg Tab PO 10 mg QDAY VITOR Administration Atenolol 25 mg 11/01/21 10:00 11/01/21 10:15 Atenolol 25 Mg Tab PO 25 mg QDAY VITOR Administration Famotidine 20 mg 11/01/21 10:00 11/01/21 10:15 Famotidine 20 Mg Tab PO 20 mg QDAY VITOR Administration Hydralazine HCl 10 mg 10/31/21 22:48 Hydralazine 20 Mg/1 Ml Inj IV Q4HR PRN Hypertension Hydromorphone HCl 0.5 mg 10/31/21 15:35 Hydromorphone 1 Mg/1 Ml Inj IV Q23H PRN Pain , Severe (7-10) Ondansetron HCl 4 mg 10/31/21 15:35 Ondansetron 4 Mg/2 Ml Inj IV Q8H PRN Nausea And Vomiting Oxycodone/Acetaminophen 1 tab 10/31/21 15:35 Oxycodone /Acetaminophen 5-325mg Tab PO Q16H PRN Pain, Moderate (4-6) Sodium Chloride 10 ml 10/31/21 22:00 11/01/21 10:16 Sodium Chloride 0.9% 10 Ml Flush Syringe IV 10 ml BID VITOR Administration Sodium Chloride 10 ml 10/31/21 15:35 Sodium Chloride 0.9% 10 Ml Flush Syringe IV PRN PRN LINE FLUSH <MARLA REAL - Last Filed: 11/02/21 07:15> Assessment and Plan Assessment and plan: I saw and evaluated the patient. I agree with the findings and the plan of care as documented in the Nurse Practitioner's~note, with the following corrections and additions. Hospitalist Physical - Constitutional Vitals: Temp Pulse Resp BP Pulse Ox 99.1 F 77 18 182/112 100 11/02/21 03:31 11/02/21 03:31 11/02/21 03:31 11/02/21 03:31 11/02/21 03:31 Results - Labs CBC & Chem 7: 11/01/21 12:02 11/02/21 04:09 Labs: Laboratory Last Values WBC 11.3 K/mm3 (4.5-11.0) H 11/01/21 12:02 RBC 3.89 M/mm3 (3.65-5.03) 11/01/21 12:02 Hgb 11.8 gm/dl (10.1-14.3) 11/01/21 12:02 Hct 33.5 % (30.3-42.9) D 11/01/21 12:02 MCV 86 fl (79-97) 11/01/21 12:02 MCH 30 pg (28-32) 11/01/21 12:02 MCHC 35 % (30-34) H 11/01/21 12:02 RDW 15.0 % (13.2-15.2) 11/01/21 12:02 Plt Count 268 K/mm3 (140-440) 11/01/21 12:02 Sodium 138 mmol/L (137-145) 11/02/21 04:09 Potassium 4.4 mmol/L (3.6-5.0) 11/02/21 04:09 Chloride 105.4 mmol/L (98-107) 11/02/21 04:09 Carbon Dioxide 20 mmol/L (22-30) L 11/02/21 04:09 Anion Gap 17 mmol/L 11/02/21 04:09 BUN 20 mg/dL (7-17) H 11/02/21 04:09 Creatinine 2.1 mg/dL (0.6-1.2) H 11/02/21 04:09 Estimated GFR 33 ml/min 11/02/21 04:09 BUN/Creatinine Ratio 10 % 11/02/21 04:09 Glucose 103 mg/dL (65-100) H 11/02/21 04:09 POC Glucose 104 mg/dL (70-105) 11/01/21 16:23 Calcium 9.3 mg/dL (8.4-10.2) 11/02/21 04:09 Magnesium 1.90 mg/dL (1.7-2.3) 10/31/21 13:36 Total Bilirubin 0.40 mg/dL (0.1-1.2) 10/31/21 13:36 AST 14 units/L (5-40) 10/31/21 13:36 ALT < 5 units/L (7-56) L 10/31/21 13:36 Alkaline Phosphatase 54 units/L (35-129) 10/31/21 13:36 Total Creatine Kinase 103 units/L (30-135) 10/31/21 13:36 Total Protein 7.6 g/dL (6.3-8.2) 10/31/21 13:36 Albumin 4.0 g/dL (3.9-5) 10/31/21 13:36 Albumin/Globulin Ratio 1.1 % 10/31/21 13:36 HCG, Quant < 2 mIU/mL (0-4) 10/31/21 13:36 Urine Color Red (Yellow) 10/31/21 14:48 Urine Turbidity Clear (Clear) 10/31/21 14:48 Urine pH 7.0 (5.0-7.0) 10/31/21 14:48 Ur Specific [place] 1.010 (1.003-1.030) 10/31/21 14:48 Urine Protein 100 mg/dl mg/dL (Negative) 10/31/21 14:48 Urine Glucose (UA) Neg mg/dL (Negative) 10/31/21 14:48 Urine Ketones Neg mg/dL (Negative) 10/31/21 14:48 Urine Blood Lg (Negative) 10/31/21 14:48 Urine Nitrite Neg (Negative) 10/31/21 14:48 Urine Bilirubin Neg (Negative) 10/31/21 14:48 Urine Urobilinogen < 2.0 mg/dL (<2.0) 10/31/21 14:48 Ur Leukocyte Esterase Sm (Negative) 10/31/21 14:48 Urine WBC (Auto) 30.0 /HPF (0.0-6.0) H 10/31/21 14:48 Urine RBC (Auto) > 182.0 /HPF (0.0-6.0) 10/31/21 14:48 U Epithel Cells (Auto) 11.0 /HPF (0-13.0) 10/31/21 14:48 Urine Bacteria (Auto) 1+ /HPF (Negative) 10/31/21 14:48 Urine Osmolality 365 Mosm/kg 10/31/21 14:48 Urine Creatinine 54.6 mg/dL (0.1-20.0) H 10/31/21 16:56 Protein/Creatinin Ratio 0.49 10/31/21 16:56 Urine Sodium 84 mmol/L 10/31/21 14:48 Urine Total Protein 27 mg/dL (5-11.8) H 10/31/21 16:56 Urine Opiates Screen Presumptive negative 10/31/21 16:56 Urine Methadone Screen Presumptive negative 10/31/21 16:56 Ur Barbiturates Screen Presumptive negative 10/31/21 16:56 Ur Phencyclidine Scrn Presumptive negative 10/31/21 16:56 Ur Amphetamines Screen Presumptive negative 10/31/21 16:56 U Benzodiazepines Scrn Presumptive negative 10/31/21 16:56 Urine Cocaine Screen Presumptive negative 10/31/21 16:56 U Marijuana (THC) Screen Presumptive negative 10/31/21 16:56 Drugs of Abuse Note Disclamer 10/31/21 16:56 Microbiology: Microbiology 10/31/21 14:48 Urine,Clean Catch Urine Culture - Preliminary NO GROWTH AFTER 24 HOURS Active Medications - Current Medications Current Medications: Generic Name Dose Route Start Last Admin Trade Name Freq PRN Reason Stop Dose Admin Acetaminophen 650 mg 10/31/21 15:35 Acetaminophen 325 Mg Tab PO Q4H PRN Pain MILD(1-3)/Fever >100.5/HUBBARD Albuterol 2.5 mg 10/31/21 15:35 Albuterol 2.5 Mg/3 Ml Nebu IH Q4H PRN Shortness Of Breath Amlodipine Besylate 10 mg 11/01/21 10:00 11/01/21 10:15 Amlodipine 10 Mg Tab PO 10 mg QDAY VITOR Administration Atenolol 25 mg 11/01/21 10:00 11/01/21 10:15 Atenolol 25 Mg Tab PO 25 mg QDAY VITOR Administration Famotidine 20 mg 11/01/21 10:00 11/01/21 10:15 Famotidine 20 Mg Tab PO 20 mg QDAY VITOR Administration Hydralazine HCl 10 mg 10/31/21 22:48 11/01/21 20:36 Hydralazine 20 Mg/1 Ml Inj IV 10 mg Q4HR PRN Administration Hypertension Hydromorphone HCl 0.5 mg 10/31/21 15:35 Hydromorphone 1 Mg/1 Ml Inj IV Q23H PRN Pain , Severe (7-10) Labetalol HCl 10 mg 11/01/21 11:32 11/02/21 05:16 Labetalol 20 Mg/4 Ml Inj IV 10 mg Q4HR PRN Administration Hypertension Ondansetron HCl 4 mg 10/31/21 15:35 Ondansetron 4 Mg/2 Ml Inj IV Q8H PRN Nausea And Vomiting Oxycodone/Acetaminophen 1 tab 10/31/21 15:35 Oxycodone /Acetaminophen 5-325mg Tab PO Q16H PRN Pain, Moderate (4-6) Sodium Chloride 10 ml 10/31/21 22:00 11/01/21 21:25 Sodium Chloride 0.9% 10 Ml Flush Syringe IV 10 ml BID VITOR Administration Sodium Chloride 10 ml 10/31/21 15:35 Sodium Chloride 0.9% 10 Ml Flush Syringe IV PRN PRN LINE FLUSH
[2021-11-01 12:41] LABS: Hematocrit 33.5 % (30.3-42.9); Hemoglobin 11.8 gm/dl (10.1-14.3); Mean Corpuscular HGB Conc 35 % (30-34); Mean Corpuscular Volume 86 fl (79-97); Platelet Count 268 K/mm3 (140-440); Red Blood Count 3.89 M/mm3 (3.65-5.03)
[2021-11-01 12:46] LABS: Calcium 9.2 mg/dL (8.4-10.2)
[2021-11-02 05:37] LABS: Calcium 9.3 mg/dL (8.4-10.2)
[2021-11-02] MEDS ORDERED: INSULIN REGULAR, HUMAN 100 UNITS/1 ML ONE (09:56)
[2021-11-02] MEDS: hydrALAZINE 20 MG/1 ML INJ IV PRN (09:59)
[2021-11-02] MEDS ORDERED: atenoloL 25 MG TAB PO SCH (10:00)
--- NOTE | 2021-11-02 10:06 | Progress Note ---
Assessment and Plan 1. CKD stage 3b: In the setting of PKD and hypertensive nephropathy. H/o several years of uncontrolled HTN. Renal US showed PKD with echogenic kidneys. Monitor renal function. Avoid nephrotoxic agents. Meds dosage based on GFR. 2. FEN: Mild Metabolic acidosis, monitor. Monitor lytes and volume status. 3. Hypertensive emergency: S/p Cardene gtt. BP is improving. Adjust antihypertensive meds. Monitor. 4. PKD: ?ADPKD. Patient is adopted, family history NA. F/u in 1-2 weeks. Subjective: Patient was seen and examined at the bedside. Nurse at the bedside. Examination: General appearance: well-developed, appears stated age, no distress HEENT: atraumatic, pupils reacting to light Neck: trachea midline Respiratory: ctab Heart: S1S2, regular, no murmur Abdomen: soft, bowel sounds heard, NT Integumentary: no obvious rash Neurologic: AO, non-focal Ext: no edema Subjective Date of service: 11/02/21 Objective - Vital Signs Vital signs: Vital Signs - 12hr 11/01/21 11/01/21 11/02/21 23:00 23:31 03:31 Temperature 97.9 F 99.1 F Pulse Rate 83 77 Pulse Rate [ 80 From Monitor] Respiratory 21 16 18 Rate Blood Pressure 164/96 182/112 O2 Sat by Pulse 98 99 100 Oximetry 11/02/21 07:29 Temperature 98.2 F Pulse Rate 81 Pulse Rate [ From Monitor] Respiratory Rate Blood Pressure 169/110 O2 Sat by Pulse 100 Oximetry - Lab 11/01/21 12:02 11/02/21 04:09 Most recent lab results Calcium 9.3 mg/dL (8.4-10.2) 11/02/21 04:09 Magnesium 1.90 mg/dL (1.7-2.3) 10/31/21 13:36 Urine Creatinine 54.6 mg/dL (0.1-20.0) H 10/31/21 16:56 Urine Sodium 84 mmol/L 10/31/21 14:48 Urine Total Protein 27 mg/dL (5-11.8) H 10/31/21 16:56 Medications & Allergies - Medications Allergies/Adverse Reactions: Allergies No Known Allergies Allergy (Verified 10/31/21 12:59) Home Medications: Home Medications Medication Instructions Recorded Confirmed Last Taken Type amLODIPine 10 mg PO QDAY #30 tablet 11/02/21 Unknown Rx atenoloL [Tenormin] 50 mg PO QDAY #30 tablet 11/02/21 Unknown Rx hydrALAZINE [Apresoline TAB] 50 mg PO Q12HR #60 11/02/21 Unknown Rx Active Medications: Generic Name Dose Route Start Last Admin Trade Name Freq PRN Reason Stop Dose Admin Acetaminophen 650 mg 10/31/21 15:35 Acetaminophen 325 Mg Tab PO Q4H PRN Pain MILD(1-3)/Fever >100.5/HUBBARD Albuterol 2.5 mg 10/31/21 15:35 Albuterol 2.5 Mg/3 Ml Nebu IH Q4H PRN Shortness Of Breath Amlodipine Besylate 10 mg 11/01/21 10:00 11/01/21 10:15 Amlodipine 10 Mg Tab PO 10 mg QDAY VITOR Administration Atenolol 50 mg 11/02/21 10:00 Atenolol 25 Mg Tab PO QDAY VITOR Famotidine 20 mg 11/01/21 10:00 11/01/21 10:15 Famotidine 20 Mg Tab PO 20 mg QDAY VITOR Administration Hydralazine HCl 10 mg 10/31/21 22:48 11/01/21 20:36 Hydralazine 20 Mg/1 Ml Inj IV 10 mg Q4HR PRN Administration Hypertension Hydromorphone HCl 0.5 mg 10/31/21 15:35 Hydromorphone 1 Mg/1 Ml Inj IV Q23H PRN Pain , Severe (7-10) Labetalol HCl 10 mg 11/01/21 11:32 11/02/21 05:16 Labetalol 20 Mg/4 Ml Inj IV 10 mg Q4HR PRN Administration Hypertension Ondansetron HCl 4 mg 10/31/21 15:35 Ondansetron 4 Mg/2 Ml Inj IV Q8H PRN Nausea And Vomiting Oxycodone/Acetaminophen 1 tab 10/31/21 15:35 Oxycodone /Acetaminophen 5-325mg Tab PO Q16H PRN Pain, Moderate (4-6) Sodium Chloride 10 ml 10/31/21 22:00 11/01/21 21:25 Sodium Chloride 0.9% 10 Ml Flush Syringe IV 10 ml BID VITOR Administration Sodium Chloride 10 ml 03/15/22 15:35 Sodium Chloride 0.9% 10 Ml Flush Syringe IV PRN PRN LINE FLUSH
[2021-11-02] MEDS: amLODIPine 10 MG TAB PO SCH (10:08)
[2021-11-02] MEDS: FAMOTIDINE 20 MG TAB PO SCH (10:10)
[2021-11-02 14:37] VITALS: BP 122/76
--- NOTE | 2021-11-02 14:58 | Discharge Summary ---
Providers - Providers Date of Admission: 10/31/21 15:36 Date of discharge: 11/02/21 Attending physician: ACE HERNANDEZ 10/31/21 15:34 Consult to Physician [CONS] Urgent Comment: Consulting Provider: LAKISHA BASHIR Physician Instructions: Reason For Exam: Hypertensive emergency 10/31/21 16:16 Consult to Physician [CONS] Routine Comment: Consulting Provider: DOROTHY KAUFFMAN Physician Instructions: Reason For Exam: Hypertensive nephropathy Hospitalization Condition: Critical Hospital course: This is a 36-year-old female with past medical history of gestational HTN admitted for hypertensive emergency and IRLANDA. Patient was placed on Cardene drip, and was admitted to intensive care unit. She was Off cardene gtt overnight, PO antihypertensive agents added and ordered PRN labetalol and hydralazine for SBP greater than 160. Renal US noted suggesting polycystic kidney disease, Nephrology consulted. Finding discussed with patient at the bedside, education provided on disease and renoprotective lifestyle measures. Patient voiced understanding of the info provided. Patient was then transferred to telemetry floor. Oral hypertensives were adjusted and patient was discharged home in stable condition with outpatient follow-up. Patient will follow-up with [facility] in one-two weeks. Disposition: 01 HOME / SELF CARE / HOMELESS Final Discharge Diagnosis (Prints w/discharge instructions): --Hypertensive emergency. --Polycystic kidney disease with CKD Time spent for discharge: 34 minutes Core Measure Documentation - Palliative Care Palliative Care/ Comfort Measures: Not Applicable - Core Measures Any of the following diagnoses?: none Exam - Constitutional Vitals: Temp Pulse Resp BP Pulse Ox 98.7 F 81 16 122/76 99 11/02/21 14:34 11/02/21 14:34 11/02/21 14:34 11/02/21 14:34 11/02/21 14:34 General appearance: Present: no acute distress, obese - EENT Eyes: Present: PERRL ENT: hearing intact, clear oral mucosa - Neck Neck: Present: supple, normal ROM - Respiratory Respiratory effort: normal Respiratory: bilateral: CTA - Cardiovascular Heart Sounds: Present: S1 & S2. Absent: rub, click - Extremities Extremities: pulses symmetrical, No edema Peripheral Pulses: within normal limits - Abdominal General gastrointestinal: Present: soft, non-tender, non-distended, normal bowel sounds - Integumentary Integumentary: Present: clear, warm, dry - Musculoskeletal Musculoskeletal: gait normal, strength equal bilaterally - Psychiatric Psychiatric: appropriate mood/affect, intact judgment & insight - Neurologic Neurologic: CNII-XII intact, moves all extremities Plan Activity: advance as tolerated Weight Bearing Status: Weight Bear as Tolerated Diet: renal Additional Instructions: Repeat BMP in 1 week Follow up with: JAYLEN CARR [Other] - 3-5 Days TYLER LAURA MD [Staff Physician] - 7 Days DOROTHY KAUFFMAN MD [Staff Physician] - 7 Days Prescriptions: amLODIPine 10 mg PO QDAY #30 tablet hydrALAZINE [Apresoline TAB] 50 mg PO Q12HR #60 atenoloL [Tenormin] 50 mg PO QDAY #30 tablet
[2021-11-03 12:42] LABS: Myeloperoxidase Antibody <1.0 AI (<1.0)
--- NOTE | 2021-11-03 18:42 | Electrocardiograph Report ---
[facility] Test Date: 2021-10-31 Test Time: 15:19:48 Pat Name: RONEN GARNICA Department: Room: A454 Gender: F [employer] Officer: TREVA : 1985 Requested By: MALATHI BEAVERS Order Number: [id number] Reading MD: Dhaval Lizama Measurements Intervals [place] Rate: 81 P: 43 VT: 150 QRS: -47 QRSD: 101 T: 90 QT: 402 QTc: 469 Interpretive Statements Sinus rhythm Probable left atrial enlargement Left anterior fascicular block LVH with secondary repolarization abnormality LAD. PRWP No previous ECG available for comparison Electronically Signed On 11-03-2021 18:42:07 EDT by Dhaval Lizama
== END 2021-11-02 17:20 | disposition home or self-care (01) | DRG 304 ==
LOC: ED 12:51 → CC1 15:36 → 4A 11-01 20:57
PROVIDERS: ADMIT Internal Medicine; ATTEND Internal Medicine
DX: I16.1 Hypertensive emergency (principal); N17.0 Acute kidney failure with tubular necrosis; Z82.49 Family history of ischemic heart disease and other diseases of the circulatory system; Z86.32 Personal history of gestational diabetes; I12.9 Hypertensive chronic kidney disease with stage 1 through stage 4 chronic kidney disease, or unspecified chronic kidney disease; N18.32 Chronic kidney disease, stage 3b
CPT/HCPCS: 36415; 76770; 80048; 80053; 80307; 81001; 82550; 82570; 82962; 83735; 83935; 84156; 84300; 84702; 85027; 85613; 86021; 86038; 86160; 87086; 93005; G0378; J3490; J0360; J7120